=== PATIENT | male | born 1945 | race Caucasian/White ===

== ENCOUNTER 2020-10-03 19:28 | Emergency (ER) | payer OTHER ==
[~2020-10-03] VITALS: Ht 185.4 cm; Wt 75.0 kg
[2020-10-03 19:35] VITALS: BP 116/68
== END 2020-10-03 20:00 | disposition home or self-care (01) ==
LOC: EMS 19:33
DX: R41.82 Altered mental status, unspecified (principal); Z59.0 Homelessness
CPT/HCPCS: 99283; Z7502

== ENCOUNTER 2022-04-22 09:39 | Emergency (ER) | payer OTHER ==
[~2022-04-22] VITALS: Ht 180.3 cm; Wt 75.0 kg
[2022-04-22 11:51] VITALS: BP 135/72
== END 2022-04-22 12:42 | disposition home or self-care (01) ==
LOC: EMS 09:41
DX: F41.9 Anxiety disorder, unspecified (principal); M79.604 Pain in right leg; F17.210 Nicotine dependence, cigarettes, uncomplicated
CPT/HCPCS: 99283